=== PATIENT | male | born 1975 | race Caucasian/White ===

== ENCOUNTER 2020-02-23 15:29 | Emergency (ER) | payer SELFPAY ==
[~2020-02-23] VITALS: Ht 162.6 cm; Wt 29.0 kg
[2020-02-23 16:10] VITALS: Ht 162.6 cm; Wt 29.0 kg
[2020-02-23 16:46] VITALS: BP 116/77
== END 2020-02-23 16:46 | disposition home or self-care (01) ==
LOC: ED 15:29
DX: B34.9 Viral infection, unspecified (principal)

== ENCOUNTER 2020-02-24 09:22 | Emergency (ER) | payer SELFPAY ==
[~2020-02-24] VITALS: Ht 167.6 cm; Wt 62.6 kg
[2020-02-24 09:33] VITALS: Ht 167.6 cm; Wt 62.6 kg
[2020-02-24 11:21] LABS: CALCIUM 8.1 mg/dL (8.5-10.1); CARBON DIOXIDE 28.7 mmol/L (21-32); CHLORIDE SERUM 100 mmol/L (98-107); GFR1 > 60 mL/min; GLUCOSE SERUM 133 mg/dL (74-106); POTASSIUM SERUM 3.7 mmol/L (3.5-5.1); SODIUM SERUM 137 mmol/L (136-145)
[2020-02-24 11:24] LABS: PLATELET COUNT 206 x10^3mcL (130-400)
[2020-02-24 11:26] LABS: ALBUMIN 3.5 g/dL (3.4-5.0); ALKALINE PHOSPHATASE 55 U/L (46-116); ALT/SGPT 43 U/L (16-63); AMYLASE 41 U/L (25-115); AST/SGOT 45 U/L (15-37); LIPASE 116 IU/L (73-393); TOTAL PROTEIN, SERUM 7.9 g/dL (6.4-8.2)
[2020-02-24 11:36] LABS: BASOPHIL % 0 % (0-2)
[2020-02-24 11:49] LABS: BILIRUBIN TOTAL 0.39 mg/dL (0.20-1.00)
[2020-02-24 12:11] LABS: AMPHETAMINE QUAL UR NONE DETECTED (See below)
[2020-02-24 12:46] LABS: C REACTIVE PROTEIN 6.8 mg/dL (<=0.9)
[2020-02-24 13:15] VITALS: BP 121/79
== END 2020-02-24 13:15 | disposition home or self-care (01) ==
LOC: ED 09:22
PROVIDERS: Specialist
DX: U07.1 COVID-19 (principal); J12.89 Other viral pneumonia
CPT/HCPCS: 36600; 83880; G0480; J0456; J2405; J7030; J7050; U0003-CS

== ENCOUNTER 2020-02-25 15:08 | Emergency (ER) | payer SELFPAY ==
[~2020-02-25] VITALS: Ht 165.1 cm; Wt 61.2 kg
[2020-02-25 15:19] VITALS: Ht 165.1 cm; Wt 61.2 kg
[2020-02-25 17:37] LABS: microscopic required? YES; urine erythrocyte NEGATIVE (NEGATIVE)
[2020-02-25 17:43] VITALS: BP 1118/74
== END 2020-02-25 18:23 | disposition left against medical advice (07) ==
LOC: ED 15:08
PROVIDERS: Emergency Medicine
DX: J18.9 Pneumonia, unspecified organism (principal)
CPT/HCPCS: 36600; 83880; 87804